=== PATIENT | female | born 1990 | race Caucasian/White ===

== ENCOUNTER 2018-04-28 09:14 | Emergency (ER) | payer MEDICAID ==
[2018-04-28 10:02] VITALS: BMI 36.0
[2018-04-28 16:51] VITALS: BP 111/54; PULSE 93; O2SAT 98
--- NOTE | 2018-04-29 01:24 | OBHP ---
Datetime: 04/28/2018 10:48 IP Adm Impression: Term, intrauterine ; No Active Labor; Intact Membranes (Annotations: Data stored by CPN on behalf of user) IP Admit Plan: Observation/Evaluation; Discharge home Admit Comment, IP Provider: 27-year-old at 38.4 weeks (confirmed via 1st tri u/s) presents with constant lower abdominal pain. Pain has been present since last night but was more intense upon waki ng this morning. She denies contractions, vaginal bleeding or a large gush of fluid. has be en uncomplicated thus far. Follows at [facility] and was last seen Friday, 4 days prior to presenta tion. : [facility] PMH: denies Allergy: denies Meds: denies OBHx: denies FHx: denies Labs: GBS neg, HbsAg neg, remainder unknown (not in records) PE: comfortable, in no acute distress CV: RRR Resp: no respiratory distress Abd: no tenderness to palpation Extremities: no pitting edema Pelvic: 0/20/-3 ROS: denies headache, dizziness, nausea, vomiting, chest pain, difficulty breathing, constipation and diarrhea. Assessment: 27-year-old at 38.4 weeks (confirmed via 1st tri u/s) presents with lower abdomin al pain. Plan: -Tylenol 650 PO relieved pain -EFM: reactive NST, reassuring Cat I tracing, FHR 140, Moderate variability, accelerations present , no decelerations -Counseled on emergent signs and symptoms warranting immediate trip back to ED OB Hospitalist on-call. Pt seen with PGY1.. agree with note labor instructoins given MAHNDO Pelvic Type - PN: Adequate Extremities - PN: Normal Abdomen - PN: Normal Back - PN: Not Done Breast - PN: Not Done Lungs - PN: Normal Heart - PN: Normal Thyroid - PN: Not Done Neurologic - PN: Not Done General - PN: Normal FHR - Baseline A Provider: 140 EGA AdmitDate IP: 38.4 IP Chief Complaint: Maternal discomfort NICHD Variability Prov Fetus A: Moderate 6-25bpm NICHD Accel Fetus A IP Provider: [id number] FHR Category Provider Fetus A: Category I NICHD Decel Fetus A IP Provider: None Effacement, Provider: 20 Station, Provider: -3 Genitourinary Exam: Not Done DTRs - PN: Not Done
--- NOTE | 2018-04-29 01:24 | OBDCSUM ---
Datetime: 04/28/2018 10:53 Discharge Diagnosis, Provider: False Labor - Undelivered
== END 2018-04-28 11:00 | disposition home or self-care (01) ==
LOC: H.EROB2 09:14 → H.L&D 09:47 → H.EROB2 11:00
DX: O26.93 Pregnancy related conditions, unspecified, third trimester (principal); R10.2 Pelvic and perineal pain; Z3A.38 38 weeks gestation of pregnancy